=== PATIENT | female | born 1995 | race Caucasian/White ===

== ENCOUNTER 2017-06-22 13:44 | Emergency (ER) | payer BC ==
[2017-06-22] MEDS ORDERED: Rabies VIRUS VACCINE, HDCV* 2.5 UNIT/ML 1 ML IM ONE (14:44)
[2017-06-22] MEDS ORDERED: Rabies Immune Globulin 10 ML* 150 UNIT/ML VIAL IM ONE (14:44)
--- NOTE | 2017-06-22 15:01 | UC ---
General HPI - HPI Summary HPI Summary: LAST NIGHT HAD BAT IN ROOM. NO KNOWN BITES. NO FEVER. NO RASH. NO MUSCLE ACHES. - History of Current Complaint Chief Complaint: UCGeneralIllness Stated Complaint: RABIES EXPOSURE Time Seen by Provider: 06/22/17 14:34 Hx Obtained From: Patient, Other: - ROOMMATE Hx Last Menstrual Period: 06/07/17 Onset/Duration: Sudden Onset, Lasting Hours, Resolved Current Severity: None Associated Signs & Symptoms: Negative: Abdominal Pain, Back Pain, Confusion, Cough, Dysuria, Edema, Fever, Nausea, Palpitations, Syncope, SOB, Vomiting, Weakness - Allergy/Home Medications Allergies/Adverse Reactions: Allergies Allergy/AdvReac Type Severity Reaction Status Date / Time No Known Allergies Allergy Verified 06/22/17 13:53 Home Medications: Home Medications Alpha-Lipoic Acid (Thioctic AC [Alpha Lipoic Acid] 600 mg PO DAILY 06/22/17 [ History Confirmed 06/22/17] Cholecalciferol [Vitamin D3] 1,000 mg PO DAILY 06/22/17 [History Confirmed 06/22] Methylcobalamin [B17-Ahgsvy] 1 mg PO DAILY 06/22/17 [History Confirmed 06/22/17] PMH/Surg Hx/FS Hx/Imm Hx Previously Healthy: Yes - Surgical History Surgical History: Yes Surgery Procedure, Year, and Place: ACL repair - Family History Known Family History: Negative: Blood Disorder - Social History Occupation: Student Lives: With Family Alcohol Use: Rare Substance Use Type: None Smoking Status (MU): Never Smoked Tobacco Review of Systems Constitutional: Negative Skin: Negative Eyes: Negative ENT: Negative Respiratory: Negative Cardiovascular: Negative Gastrointestinal: Negative Genitourinary: Negative Motor: Negative Neurovascular: Negative Musculoskeletal: Negative Neurological: Negative Psychological: Negative All Other Systems Reviewed And Are Negative: Yes Physical Exam Triage Information Reviewed: Yes Appearance: Well-Appearing, No Pain Distress, Well-Nourished Vital Signs: Initial Vital Signs Temp 98.6 F 06/22/17 13:49 Pulse 80 06/22/17 13:49 Resp 18 06/22/17 13:49 BP 113/67 06/22/17 13:49 Pulse Ox 98 06/22/17 13:49 Vital Signs Reviewed: Yes Eye Exam: Normal ENT Exam: Normal Dental Exam: Normal Neck exam: Normal Respiratory Exam: Normal Respiratory: Positive: Chest non-tender, Lungs clear Cardiovascular Exam: Normal Cardiovascular: Positive: RRR, No Murmur Abdominal Exam: Normal Musculoskeletal Exam: Normal Neurological Exam: Normal Psychological Exam: Normal Skin Exam: Normal Course/Dx - Differential Dx - Multi-Symptom Differential Diagnoses: Metabolic Abnormality, Urinary Tract Infection Provider Diagnoses: POST EXPOSURE RABIES PROPHYLAXIS Discharge - Discharge Plan Condition: Stable Disposition: HOME Patient Education Materials: Rabies Vaccine (ED) Referrals: [facility] [Outside]
== END 2017-06-22 15:29 | disposition home or self-care (01) ==
LOC: UCEAST 13:44
DX: Z20.3 Contact with and (suspected) exposure to rabies (principal)
CPT/HCPCS: 90375; 90471; 96372; 99201; G0463

== ENCOUNTER 2017-12-11 11:33 | Emergency (ER) | payer BC ==
[2017-12-11 13:24] VITALS: BP 112/76
--- NOTE | 2017-12-11 14:14 | UC ---
Respiratory Complaint HPI - HPI Summary HPI Summary: 22 yo female with cough/runny nose x 1 day mild myalgia f/c - History of Current Complaint Chief Complaint: UCGeneralIllness Stated Complaint: fever, AND COUGH Time Seen by Provider: 12/11/17 13:45 Hx Obtained From: Patient Hx Last Menstrual Period: 11/21/17 Onset/Duration: Gradual Onset, Lasting Minutes Severity Initially: Moderate Severity Currently: Mild Pain Intensity: 4 Pain Scale Used: 0-10 Numeric Character: Cough: Nonproductive Alleviating Factors: Nothing Associated Signs And Symptoms: Positive: Fever, Chills, Nasal Congestion - Allergies/Home Medications Allergies/Adverse Reactions: Allergies Allergy/AdvReac Type Severity Reaction Status Date / Time No Known Allergies Allergy Verified 12/11/17 13:24 Home Medications: Home Medications Ms Infusions Monthly 12/11/17 [History] PMH/Surg Hx/FS Hx/Imm Hx Previously Healthy: Yes Neurological History: Other Other Neurological History: MS - Surgical History Surgical History: Yes Surgery Procedure, Year, and Place: ACL repair - Family History Known Family History: Positive: Hypertension Negative: Blood Disorder - Social History Alcohol Use: Occasionally Substance Use Type: None Smoking Status (MU): Never Smoked Tobacco Review of Systems Constitutional: Fever, Chills, Fatigue Skin: Negative Eyes: Negative ENT: Nasal Discharge Respiratory: Cough Cardiovascular: Negative Gastrointestinal: Negative Genitourinary: Negative Motor: Negative Neurovascular: Negative Musculoskeletal: Myalgia Neurological: Headache Psychological: Negative Is Patient Immunocompromised?: No All Other Systems Reviewed And Are Negative: Yes Physical Exam Triage Information Reviewed: Yes Appearance: Well-Appearing, No Pain Distress, Well-Nourished Vital Signs: Initial Vital Signs Temp 99.4 F 12/11/17 13:20 Pulse 75 12/11/17 13:20 Resp 16 12/11/17 13:20 BP 112/76 12/11/17 13:20 Pulse Ox 100 12/11/17 13:20 Vital Signs Reviewed: Yes ENT: Positive: Hearing grossly normal, Pharynx normal, Nasal drainage, TMs normal, Uvula midline. Negative: TM red, Tonsillar swelling, Tonsillar exudate , Dental tenderness, Sinus tenderness Neck: Positive: Supple, Nontender, No Lymphadenopathy Respiratory: Positive: Chest non-tender, Lungs clear Cardiovascular: Positive: RRR, No Murmur Musculoskeletal: Positive: ROM Intact, No Edema Neurological: Positive: Alert Psychological Exam: Normal Skin Exam: Normal UC Diagnostic Evaluation - Laboratory O2 Sat by Pulse Oximetry: 100 - normal/not hypoxic Respiratory Course/Dx - Course Course Of Treatment: flu B(+) - Differential Dx/Diagnosis Provider Diagnoses: influenza Discharge - Discharge Plan Condition: Stable Disposition: HOME Patient Education Materials: Influenza (ED) Referrals: [facility] - Jayme JOHNSON [Primary Care Provider] -
== END 2017-12-11 14:40 | disposition home or self-care (01) ==
LOC: UCEAST 11:33
DX: J11.1 Influenza due to unidentified influenza virus with other respiratory manifestations (principal)
CPT/HCPCS: 87502; 99212; G0463